=== PATIENT | female | born 1985 | race Two or more races ===

== ENCOUNTER 2023-02-08 22:44 | Emergency (ER) | payer OTHER ==
[~2023-02-08] VITALS: Ht 167.6 cm; Wt 65.3 kg
[2023-02-08] MEDS ORDERED: AZESCO TABLET1 EACH PO (23:27)
[2023-02-09 01:08] LABS: HEMATOCRIT 39.9 % (36.0-45.00); HEMOGLOBIN 13.8 g/dL (12.0-15.00); MEAN CELL VOLUME 87.1 fL (80.00-100.00); MEAN CORPUSCULAR HEMOGLOBIN 30.1 pg (27.00-32.0); MEAN CORPUSCULAR HGB CONC 34.5 g/dl (32.0-36.0); PLATELET COUNT 313 K/uL (150-450); RED BLOOD COUNT 4.58 M/uL (4.00-6.00); RED CELL DISTRIBUTION WIDTH 13.8 % (11.5-14.5)
[2023-02-09 01:24] LABS: INR 0.96; PARTIAL THROMBOPLASTIN TIME 31.6 SECONDS (22.0-34.0); PROTHROMBIN TIME 10.1 SECONDS (9.0-11.5)
[2023-02-09] MEDS ORDERED: RHOGAM ULTR1500 UNIT IM (03:35)
== END 2023-02-09 03:56 | disposition home or self-care (01) ==
LOC: ER 22:44
PROVIDERS: General Practice
DX: O20.8 Other hemorrhage in early pregnancy (principal); Z3A.01 Less than 8 weeks gestation of pregnancy